=== PATIENT | male | born 1990 | race Caucasian/White ===

== ENCOUNTER → 2021-08-14 | Outpatient (CLI) | payer OTHER ==
--- NOTE | 2021-08-14 16:36 | REP ---
INDICATION: ABN LABS. COMPARISON: None. TECHNIQUE: Real-time sonographic evaluation of the thyroid gland FINDINGS: The right lobe of the thyroid gland measures 4.2 x 2 x 1.7 cm and the left lobe measures 6.2 x 1.6 x 1.9 cm. The isthmus measures 4 mm. In the right lobe of the thyroid gland there are 2 solid nodules 1 in the superior pole measuring 8 mm and the other in the midpole region which is somewhat complex measuring 1.1 cm. In the left lobe of the thyroid gland there are 3 nodules 1 in the superior pole measuring 1 cm 1 in the midpole region measuring 1 cm and the other in the inferior pole which is rather large and somewhat complex measuring 2.8 x 1.6 x 2.4 cm. IMPRESSION: Multiple thyroid nodules as described above. The large nodule in the inferior pole of the left lobe is somewhat concerning. Consider thyroid scintigraphy with radio iodide 123 for further evaluation. <Electronically signed by Bro Boudreaux > 08/14/21 [id number]
== END ==
LOC: M RAD 15:52
PROVIDERS: ATTEND Pediatrics
DX: R94.6 Abnormal results of thyroid function studies (principal); E04.2 Nontoxic multinodular goiter

== ENCOUNTER → 2021-09-03 | Outpatient (REF) | payer OTHER | LOC: M LAB REF 19:02 | PROVIDERS: ATTEND Otolaryngology | DX: E04.2 Nontoxic multinodular goiter (principal) ==

== ENCOUNTER → 2023-09-14 | Outpatient (REF) | payer OTHER ==
[2023-09-14 18:34] LABS: BASO # 0.1 10^3/uL (0.0-0.2); BASO % 0.6 % (0.0-1.0); EOS # 0.1 10^3/uL (0.0-0.5); HEMATOCRIT 50.6 % (42.0-52.0); HEMOGLOBIN 17.4 g/dl (13.5-17.5); LYMPH # 3.6 10^3/uL (1.5-5.0); LYMPH % 39.8 % (24.0-44.0); MEAN CORPUSCULAR HGB CONC 34.4 g/dl (32.0-36.5); MEAN CORPUSCULAR VOLUME 84.5 fl (80.0-96.0); MONO % 10.8 % (2.0-8.0); NEUTROPHILS # 4.3 10^3/uL (1.5-8.5); NEUTROPHILS % 47.5 % (36.0-66.0); PLATELET COUNT, AUTOMATED 335 10^3/uL (150-450); RED BLOOD COUNT 5.99 10^6/uL (4.30-6.10)
[2023-09-14 18:56] LABS: THYROID STIMULATING HORMONE 0.013 uIU/ML (0.55-4.78); TOTAL 25(OH) VITAMIN D 24.4 NG/ML (20.0-100.0)
[2023-09-14 18:58] LABS: ALBUMIN 4.4 G/DL (3.2-5.2); BILIRUBIN,DIRECT 0.2 MG/DL (<0.4); BILIRUBIN,TOTAL 0.7 MG/DL (0.3-1.2); TOTAL PROTEIN 7.7 G/DL (5.7-8.2)
[2023-09-14 19:00] LABS: FREE T4 1.37 NG/DL (0.89-1.76)
[2023-09-16 06:09] LABS: HSV TYPE II IgG SPECIFIC <0.91 index (0.00-0.90)
== END ==
LOC: M LAB REF 16:19
PROVIDERS: ATTEND Pediatrics
DX: I86.1 Scrotal varices (principal); E04.1 Nontoxic single thyroid nodule; N48.9 Disorder of penis, unspecified; E55.9 Vitamin D deficiency, unspecified; R74.01 Elevation of levels of liver transaminase levels

== ENCOUNTER → 2023-11-25 | Outpatient (CLI) | payer OTHER | LOC: M RAD 15:31 | PROVIDERS: ATTEND Nurse Practitioner Family | DX: N50.82 Scrotal pain (principal); I86.1 Scrotal varices ==

== ENCOUNTER 2024-04-30 08:35 | Emergency (ER) | payer OTHER ==
[~2024-04-30] VITALS: Ht 180.3 cm; Wt 105.3 kg
[2024-04-30] MEDS ORDERED: LAMO200T3 (08:42)
[2024-04-30] MEDS ORDERED: AMPH1CAP5 (08:42)
[2024-04-30] MEDS ORDERED: VRAY3CAP (08:42)
[2024-04-30 09:18] LABS: BASO % 0.4 % (0.0-1.0); EOS % 0.4 % (0.0-3.0); HEMATOCRIT 49.5 % (42.0-52.0); HEMOGLOBIN 16.8 g/dl (13.5-17.5); LYMPH # 1.8 10^3/uL (1.5-5.0); LYMPH % 17.2 % (24.0-44.0); MEAN CORPUSCULAR HEMOGLOBIN 28.1 pg (27.0-33.0); MEAN CORPUSCULAR HGB CONC 33.9 g/dl (32.0-36.5); MEAN CORPUSCULAR VOLUME 82.9 fl (80.0-96.0); MONO # 0.7 10^3/uL (0.0-0.8); NEUTROPHILS # 7.8 10^3/uL (1.5-8.5); NEUTROPHILS % 74.6 % (36.0-66.0); PLATELET COUNT, AUTOMATED 305 10^3/uL (150-450); RED BLOOD COUNT 5.97 10^6/uL (4.30-6.10); WHITE BLOOD COUNT 10.4 10^3/uL (4.0-10.0)
[2024-04-30 09:24] LABS: ERYTHROCYTE SEDIMENTATION RATE 9 mm/hr (0-15)
[2024-04-30 09:46] LABS: C REACTIVE PROTEIN QUANTITATIV < 0.40 MG/DL (<1.0)
[2024-04-30 09:48] LABS: ALBUMIN 4.4 G/DL (3.2-5.2); ALKALINE PHOSPHATASE 77 U/L (46-116); ALT/SGPT 36 U/L (7.0-40); AST/SGOT 12 U/L (<34); BILIRUBIN,DIRECT 0.1 MG/DL (<0.4); BILIRUBIN,TOTAL 0.5 MG/DL (0.3-1.2); BLOOD UREA NITROGEN 21 MG/DL (9-23); CALCIUM LEVEL 9.3 MG/DL (8.5-10.1); CARBON DIOXIDE LEVEL 28 MMOL/L (20-31); CHLORIDE LEVEL 105 MMOL/L (98-107); GLOMERULAR FILTRATION RATE > 60.0 (>60); GLUCOSE, FASTING 94 MG/DL (60-100); POTASSIUM SERUM 4.3 MMOL/L (3.5-5.1); SODIUM LEVEL 137 MMOL/L (136-145); TOTAL PROTEIN 7.2 G/DL (5.7-8.2)
[2024-04-30 10:00] LABS: PROCALCITONIN <0.04 ng/ml
[2024-04-30 13:21] VITALS: BP 139/81; TEMP 97.2; O2SAT 99
[2024-04-30 13:29] LABS: Trichomonas vaginalis (AMP) NOT DETECTED (NEGATIVE)
[2024-04-30 13:53] LABS: GC DNA AMPLIFICATION NEGATIVE (NEGATIVE)
[2024-04-30] MEDS ORDERED: LEVO1TAB39 PO (14:05)
== END 2024-04-30 14:10 | disposition home or self-care (01) ==
LOC: M ED 08:35
DX: N45.1 Epididymitis (principal); I86.1 Scrotal varices; Z79.899 Other long term (current) drug therapy; Z79.2 Long term (current) use of antibiotics

== ENCOUNTER 2024-11-30 14:36 | Emergency (ER) | payer OTHER ==
[~2024-11-30] VITALS: Ht 180.3 cm; Wt 104.4 kg
[~2024-11-30 14:36] MED LIST: AMPH1CAP5; LAMO200T3; LEVO1TAB39 PO; VRAY3CAP
[2024-11-30 18:09] VITALS: BP 138/91; TEMP 97.6; O2SAT 99
[2024-11-30] MEDS ORDERED: [UNRECOGNIZED DRUG - CODE] PO (18:13)
[2024-11-30] MEDS ORDERED: IBUPROFEN 800 MG TAB PO ONE (18:25)
[2024-11-30] MEDS ORDERED: VENTAER INH (19:05)
[2024-11-30] MEDS ORDERED: DELS1LIQ3 PO (19:05)
[2024-11-30] MEDS ORDERED: AMOX500C PO (19:05)
== END 2024-11-30 19:14 | disposition home or self-care (01) ==
LOC: M ED 14:36
DX: J20.9 Acute bronchitis, unspecified (principal); H65.01 Acute serous otitis media, right ear; R00.0 Tachycardia, unspecified; F17.200 Nicotine dependence, unspecified, uncomplicated; Z79.52 Long term (current) use of systemic steroids; Z79.2 Long term (current) use of antibiotics; Z79.899 Other long term (current) drug therapy

== ENCOUNTER 2024-12-30 13:04 | Emergency (ER) | payer OTHER ==
[~2024-12-30] VITALS: Ht 180.3 cm; Wt 102.3 kg
[~2024-12-30 13:04] MED LIST changes: +AMOX500C PO; +DELS1LIQ3 PO; +VENTAER INH; +[UNRECOGNIZED DRUG - CODE] PO
[2024-12-30] MEDS: MECLIZINE 25 MG TABLET PO ONE (16:59)
[2024-12-30 17:20] LABS: BASO % 0.4 % (0.0-1.0); EOS # 0.1 10^3/uL (0.0-0.5); EOS % 1.7 % (0.0-3.0); LYMPH # 3.3 10^3/uL (1.5-5.0); MEAN CORPUSCULAR HEMOGLOBIN 29.6 pg (27.0-33.0); MEAN CORPUSCULAR HGB CONC 35.4 g/dl (32.0-36.5); MEAN CORPUSCULAR VOLUME 83.5 fl (80.0-96.0); MONO # 0.5 10^3/uL (0.0-0.8); MONO % 5.8 % (2.0-8.0); NEUTROPHILS # 4.3 10^3/uL (1.5-8.5); NEUTROPHILS % 51.9 % (36.0-66.0); PLATELET COUNT, AUTOMATED 260 10^3/uL (150-450); RED BLOOD COUNT 5.75 10^6/uL (4.30-6.10); WHITE BLOOD COUNT 8.3 10^3/uL (4.0-10.0)
[2024-12-30 18:02] LABS: ALBUMIN 3.9 G/DL (3.2-5.2); ALKALINE PHOSPHATASE 79 U/L (40-129); ALT/SGPT 42 U/L (7.0-40); AST/SGOT 19 U/L (<34); BILIRUBIN,DIRECT 0.1 MG/DL (<0.4); BILIRUBIN,TOTAL 0.4 MG/DL (0.3-1.2); BLOOD UREA NITROGEN 17 MG/DL (9-23); CALCIUM LEVEL 9.3 MG/DL (8.5-10.1); CARBON DIOXIDE LEVEL 29 MMOL/L (20-31); CHLORIDE LEVEL 104 MMOL/L (98-107); CREATININE FOR GFR 0.84 MG/DL (0.70-1.30); GLOMERULAR FILTRATION RATE > 60.0 (>60); GLUCOSE, FASTING 117 MG/DL (60-100); SODIUM LEVEL 141 MMOL/L (136-145); TOTAL PROTEIN 7.2 G/DL (5.7-8.2)
[2024-12-30 18:04] LABS: THYROID STIMULATING HORMONE < 0.010 uIU/ML (0.55-4.78)
[2024-12-30] MEDS: diazePAM 10MG/2ML SYRINGE IV ONE (19:30)
[2024-12-30] MEDS ORDERED: MECL-86 PO (20:19)
[2024-12-30] MEDS ORDERED: CETI-24 PO (20:19)
[2024-12-30 20:31] VITALS: BP 161/73; TEMP 96.8; O2SAT 97
== END 2024-12-30 20:55 | disposition home or self-care (01) ==
LOC: M ED 13:04
DX: H81.391 Other peripheral vertigo, right ear (principal); H66.91 Otitis media, unspecified, right ear; H81.21 Vestibular neuronitis, right ear; F31.9 Bipolar disorder, unspecified; F90.9 Attention-deficit hyperactivity disorder, unspecified type; F17.290 Nicotine dependence, other tobacco product, uncomplicated; Z79.899 Other long term (current) drug therapy
CPT/HCPCS: 70450; 80048; 80076; 84443; 85025; 96374; 99285; J3360